=== PATIENT | male | born 1995 | race Caucasian/White ===

== ENCOUNTER 2018-10-27 10:45 | Emergency (ER) | payer OTHER ==
[~2018-10-27] VITALS: Ht 190.5 cm; Wt 72.6 kg
[~2018-10-27 10:45] MED LIST: KETO10TA2 PO
== END 2018-10-27 13:51 | disposition home or self-care (01) ==
LOC: ER 10:45
DX: S93.401A Sprain of unspecified ligament of right ankle, initial encounter (principal); X50.3XXA Overexertion from repetitive movements, initial encounter; Y93.89 Activity, other specified; Y92.89 Other specified places as the place of occurrence of the external cause; Y99.8 Other external cause status

== ENCOUNTER 2020-09-23 14:26 | Emergency (ER) | payer OTHER ==
[~2020-09-23] VITALS: Ht 182.9 cm; Wt 80.3 kg
== END 2020-09-23 20:54 | disposition home or self-care (01) ==
LOC: ER 14:26
DX: M54.5 Low back pain (principal)

== ENCOUNTER 2023-04-13 10:47 | Emergency (ER) | payer OTHER ==
[~2023-04-13] VITALS: Ht 190.5 cm; Wt 89.4 kg
[2023-04-13 11:46] LABS: HEMATOCRIT 44.2 % (39.0-48.0); HEMOGLOBIN 14.8 g/dL (13-16.00); MEAN CELL VOLUME 88.8 fL (80.0-100.00); MEAN CORPUSCULAR HEMOGLOBIN 29.7 pg (27.00-32.0); MEAN CORPUSCULAR HGB CONC 33.4 g/dl (32.0-36.0); PLATELET COUNT 236 K/uL (150-450); RED BLOOD COUNT 4.98 M/uL (4.00-6.00); RED CELL DISTRIBUTION WIDTH 12.3 % (11.5-14.5)
[2023-04-13 11:51] LABS: PH,URINE 6.5 (5.0-8.0); URINE APPEARANCE Clear; URINE BILIRRUBIN Negative (NEGATIVE); URINE BLOOD Negative; URINE COLOR Yellow; URINE GLUCOSE Negative (NEGATIVE); URINE LEUKOCYTE Negative; URINE NITRATE Negative; URINE PROTEIN Negative (NEGATIVE)
[2023-04-13 11:54] LABS: URINE RBC 3.1 uL (0.0-20.8)
[2023-04-13 12:19] LABS: URINE BACTERIA 3.7 uL (0.0-1933); URINE EPITHELIAL CELLS 0.9 uL (0.0-38.8)
[2023-04-13 12:51] LABS: ALBUMIN 4.1 gm/dL (3.4-5.0); BILIRUBIN TOTAL 0.76 mg/dL (0.3-1.2); CREATININE SERUM 1.08 mg/dL (0.70-1.30); GFR 81.41; GLOBULINA 3.2 G/DL (2.4-3.5); POTASSIUM 3.97 mEq/L (3.5-5.1); TOTAL PROTEIN 7.3 gm/dL (6.4-8.2)
== END 2023-04-13 17:18 | disposition home or self-care (01) ==
LOC: ER 10:47
PROVIDERS: General Practice
DX: K63.89 Other specified diseases of intestine (principal)